=== PATIENT | male | born 1960 | race Caucasian/White ===

== ENCOUNTER 2019-09-27 10:54 | Day surgery (SDC) | payer MEDICAID ==
[~2019-09-27] VITALS: Ht 180.3 cm; Wt 109.6 kg
[2019-09-27] VITALS (11 sets, daily range): BP systolic 92–120; BP diastolic 56–76
[2019-09-27] MEDS ORDERED: ATOR10TA87 PO (11:46)
[2019-09-27] MEDS ORDERED: GLIP5TAB13 PO (11:46)
[2019-09-27] MEDS ORDERED: LEVO125T PO (11:46)
[2019-09-27] MEDS ORDERED: METF500T PO (11:46)
[2019-09-27] MEDS ORDERED: ASPI81TA52 PO (11:46)
[2019-09-27] MEDS ORDERED: SERT-153 PO (11:46)
[2019-09-27] MEDS ORDERED: LISI-600 PO (11:46)
[2019-09-27] MEDS ORDERED: midazolam 2 mg/2 ml injection ONE ×2 (11:56→12:37)
[2019-09-27] MEDS ORDERED: fentaNYL/PF 50MCG/1 ML 2ML syringe ONE (11:56)
[2019-09-27] MEDS ORDERED: iohexol 350MG/ML 100ml bottle IV ONE (11:57)
[2019-09-27] MEDS ORDERED: LIDOcaine 1% (10mg/ml)w/preservative injection 20ml MDV ONE (11:57)
[2019-09-27] MEDS ORDERED: iohexol 350 MG/ML 50ML vial IV ONE (11:57)
[2019-09-27] MEDS ORDERED: diphenhydrAMINE 50 mg/ml inj ONE (12:20)
[2019-09-27] MEDS ORDERED: proCHLORperazine 10 MG/2 ml inj ONE (12:37)
[2019-09-27] MEDS ORDERED: proCHLORperazine 10 MG/2 ml inj IV PRN (13:40)
[2019-09-27] MEDS ORDERED: nitroGLYCERIN 0.4mg SUBLingual tab SL PRN (13:40)
[2019-09-27] MEDS ORDERED: HYDROcodone/acetaminophen 5mg/325mg tablet PO PRN (13:40)
[2019-09-27] MEDS ORDERED: OXAZEpam 15mg capsule PO PRN (13:40)
[2019-09-27] MEDS ORDERED: HYDROcodone/acetaminophen 10/325mg tab PO PRN (13:40)
[2019-09-27] MEDS ORDERED: ondansetron/PF 4mg/2ml inj IV PRN (13:40)
[2019-09-27] MEDS ORDERED: normal saline 1000ml 1,000 ML IV SCH (13:40)
== END 2019-09-27 18:55 | disposition home or self-care (01) ==
LOC: SSTAY O 10:54
PROVIDERS: ATTEND Internal Medicine Cardiovascular Disease
DX: R94.39 Abnormal result of other cardiovascular function study (principal); I25.10 Atherosclerotic heart disease of native coronary artery without angina pectoris; E11.9 Type 2 diabetes mellitus without complications; I10 Essential (primary) hypertension; E03.9 Hypothyroidism, unspecified; E78.5 Hyperlipidemia, unspecified; F17.210 Nicotine dependence, cigarettes, uncomplicated; Z79.899 Other long term (current) drug therapy; Z96.651 Presence of right artificial knee joint; Z79.82 Long term (current) use of aspirin
CPT/HCPCS: 82948; 93458; 99152; C1769; J0780; J1200; J1644; J2001; J2250; J3010; Q9967; 99153; A4620; A6258; C1760

== ENCOUNTER 2020-02-02 06:38 | Day surgery (SDC) | payer MEDICAID ==
[2020-01-25 14:56] LABS: BASOPHILS # (AUTO) 0.1 X10'3 (0-0.2); BASOPHILS % (AUTO) 0.7 % (0-1); EOSINOPHILS # (AUTO) 0.1 X10'3 (0-0.9); EOSINOPHILS % (AUTO) 1.1 % (0-6); LYMPHOCYTES # (AUTO) 2.8 X10'3 (1.1-4.8); LYMPHOCYTES % (AUTO) 29.3 % (21-51); MEAN CORPUSCULAR HEMOGLOBIN 30.6 PG (27.0-31.0); MEAN CORPUSCULAR HGB CONC 34.3 g/dL (33.0-36.5); MEAN CORPUSCULAR VOLUME 89.3 FL (78-98); MEAN PLATELET VOLUME 9.1 FL (7.4-10.4); MONOCYTES # (AUTO) 0.6 X10'3 (0-0.9); MONOCYTES % (AUTO) 6.8 % (2-12); NEUTROPHILS # (AUTO) 5.9 X10'3 (1.8-7.7); NEUTROPHILS % (AUTO) 62.1 % (42-75); PRE OP HEMATOCRIT 46.5 % (42.0-52.0); PRE OP HEMOGLOBIN 15.9 g/dL (14.0-17.9); PRE OP PLATELET COUNT 176 X10'3 (140-440); RED BLOOD COUNT 5.21 X10'6 (4.70-6.10); RED CELL DISTRIBUTION WIDTH 14.3 % (11.5-14.5)
[2020-01-25 15:31] LABS: ALBUMIN 3.6 G/DL (3.4-5.0); ALBUMIN/GLOBULIN RATIO 1.1 (1.1-1.5); ALKALINE PHOSPHATASE 89 IU/L (46-116); BLOOD UREA NITROGEN 18 MG/DL (7-18); BUN/CREATININE RATIO 14.2 (5.4-32.0); CALCIUM 8.4 MG/DL (8.5-10.1); CHLORIDE 107 MMOL/L (99-107); CREATININE 1.27 MG/DL (0.60-1.10); PRE OP ALT 28 U/L (30-65); PRE OP ANION GAP 10 (8-16); PRE OP AST 15 U/L (10-37); PRE OP BILIRUB, TOTAL 0.5 MG/DL (0.0-1.0); PRE OP POTASSIUM 4.1 MMOL/L (3.4-5.1); PRE OP SODIUM 142 MMOL/L (135-145); TOTAL CARBON DIOXIDE 25.4 MMOL/L (24-32); TOTAL PROTEIN 6.9 G/DL (6.4-8.2); eGFR 58 ML/MIN
[2020-01-25 15:41] LABS: PRE OP GLUCOSE 222 MG/DL (70-104)
[2020-02-02] VITALS (16 sets, daily range): BP systolic 108–147; BP diastolic 69–92
[~2020-02-02] VITALS: Ht 180.3 cm; Wt 116.6 kg
[~2020-02-02 06:38] MED LIST: ATOR10TA87 PO; GLIP5TAB13 PO; LEVO125T PO; LISI-600 PO; METF500T PO; SERT-153 PO; ceFAZolin 2gm in dextrose, iso 50 ML IV ONE; famotidine 20mg tablet PO ONE; ringers solution, lacted 1,000 ML IV SCH; vancomycin 1,500 MG in NS 300ml IV soln IV ONE
[2020-02-02] MEDS ORDERED: insulin regular, human 10 units/0.1 ml syringe SQ ONE (07:55)
[2020-02-02] MEDS ORDERED: insulin regular, human 10 units/0.1 ml syringe IV ONE (07:55)
[2020-02-02] MEDS ORDERED: ringers solution, lacted 1,000 ML IV SCH (08:23)
[2020-02-02] MEDS ORDERED: proCHLORperazine 10 MG/2 ml inj IV PRN (08:25)
[2020-02-02] MEDS ORDERED: ondansetron/PF 4mg/2ml inj IV PRN (08:25)
[2020-02-02] MEDS ORDERED: HYDROmorphone inj. 0.5 MG/0.5 ML DISP.SYRIN IV PRN ×2 (08:25)
[2020-02-02] MEDS ORDERED: morphine 4 MG/ML inj SYRINge IV PRN (08:25)
[2020-02-02] MEDS ORDERED: morphine 2 MG/ML inj. syringe IV PRN (08:25)
[2020-02-02] MEDS ORDERED: meperidine/PF 25mg/ml syringe IV PRN (08:25)
[2020-02-02] MEDS ORDERED: acetaminophen 1,000mg/100ml IV 100 ML IV PRN (08:25)
[2020-02-02] MEDS ORDERED: BUPIVAcaine/PF 2.5 mg/ml (0.25%) 30ml vial ONE (09:02)
[2020-02-02] MEDS ORDERED: methylPREDNISolone sod succ 125mg/2ml vial ONE (09:23)
[2020-02-02] MEDS ORDERED: sevoflurane 250ml liquid IH ONE (09:30)
[2020-02-02] MEDS ORDERED: dexamethasone sod phosphate 10mg/ml inj ONE (09:30)
[2020-02-02] MEDS ORDERED: fentaNYL/PF 50MCG/1 ML 2ML syringe ONE (09:33)
[2020-02-02] MEDS ORDERED: propofol inj 20 ML IV ONE (09:57)
[2020-02-02] MEDS ORDERED: ROPIVAcaine 0.5% (5mg/ml) 30ml vial ONE ×2 (09:57→09:58)
[2020-02-02] MEDS ORDERED: midazolam 2 mg/2 ml injection ONE (09:57)
[2020-02-02] MEDS ORDERED: LIDOcaine 1%/PF 5ML 10 MG/ML VIAL ONE (09:57)
[2020-02-02] MEDS ORDERED: LIDOcaine 2% (20mg/ml) 5ml vial ONE (09:58)
[2020-02-02] MEDS ORDERED: ondansetron/PF 4mg/2ml inj ONE (09:58)
--- NOTE | 2020-02-02 11:16 | NUR ---
Received from OR via [facility] , accompanied by Anesthesiologist SORIN and report given by Anesthesiolgist. PATIENT WITH 20G PIV IN RIGHT UE RUNNING LR AT 100. DENIES PAIN. LEFT UE WITH BRACE ON AND WITH BIAS DRESSING ON ELBOW AND WRIST AREA. VSS. DENIES PAIN. Addendum: 02/02/20 at 1131 by Ryan Rivera RN, RN Amended: Links added.
--- NOTE | 2020-02-02 13:10 | NUR ---
DISCUSSED O2 SATURATIONS, LACK OF HOME SUPPORT EXCEPT FOR A FRIEND FOR ONE NIGHT, SLEEP APENA WITHOUT CPAP, AND CURRENT LOW SATS WITH MD ROWELL AND JESS. LUNG SOUNDS ARE CLEAR BILATERALLY. VERIFIED BY MD ROWELL. CONTINUING TO ASSESS AND MONITOR. Addendum: 02/02/20 at 1314 by Ryan Rivera RN, RN Amended: Links added.
--- NOTE | 2020-02-02 14:46 | NUR ---
I HAVE REVIEWED D/C INSTRUCTIONS WITH PATIENT AND FAMILY AND THEY HAVE VERBALIZED UNDERSTANDING. PATIENT D/C HOME WITH ALL BELONGINGS AND FAMILY GAVE TRANSPORT HOME. MD MERCADO AFFIRMS THAT PATIENT CAN GO HOME. 95% SATURATIONS ON RA. OUT VIA WHEELCHAIR TO TRANSPORT [employer]. VSS. LEFT UE CDI. NO DRAINAGE EVIDENT, + CAP REFIL AND MOVEMENT OF ALL FINGERS. Addendum: 02/02/20 at 1458 by Ryan Rivera RN, RN Amended: Links added.
== END 2020-02-02 14:46 | disposition home or self-care (01) ==
LOC: PAS 06:38
PROVIDERS: ATTEND Orthopaedic Surgery
DX: G56.22 Lesion of ulnar nerve, left upper limb (principal); G56.02 Carpal tunnel syndrome, left upper limb; F17.210 Nicotine dependence, cigarettes, uncomplicated; I10 Essential (primary) hypertension; F32.9 Major depressive disorder, single episode, unspecified; F41.9 Anxiety disorder, unspecified; M19.90 Unspecified osteoarthritis, unspecified site; E11.9 Type 2 diabetes mellitus without complications; G47.33 Obstructive sleep apnea (adult) (pediatric); E66.9 Obesity, unspecified; Z68.34 Body mass index [BMI] 34.0-34.9, adult; Z86.14 Personal history of Methicillin resistant Staphylococcus aureus infection; Z79.84 Long term (current) use of oral hypoglycemic drugs; Z11.59 Encounter for screening for other viral diseases; Z79.899 Other long term (current) drug therapy; G89.18 Other acute postprocedural pain
CPT/HCPCS: 36415; 64415; 64718; 64719; 64721; 80053; 82948; 85025; A6222; A6454; J1100; J1815; J2001; J2250; J2405; J2704; J2930; J3010; J3370; J3490; J7040; L3999; U0003; A4215; A4618; A6449; A7000; J2795; J7120

== ENCOUNTER 2020-04-20 05:14 | Inpatient (IN) | payer MEDICAID ==
[2020-04-16 11:39] LABS: BASOPHILS # (AUTO) 0.1 X10'3 (0-0.2); BASOPHILS % (AUTO) 0.5 % (0-1); EOSINOPHILS # (AUTO) 0.1 X10'3 (0-0.9); EOSINOPHILS % (AUTO) 1.5 % (0-6); LYMPHOCYTES # (AUTO) 2.4 X10'3 (1.1-4.8); LYMPHOCYTES % (AUTO) 24.4 % (21-51); MEAN CORPUSCULAR HEMOGLOBIN 30.8 PG (27.0-31.0); MEAN CORPUSCULAR HGB CONC 33.9 g/dL (33.0-36.5); MEAN CORPUSCULAR VOLUME 90.9 FL (78-98); MEAN PLATELET VOLUME 8.7 FL (7.4-10.4); MONOCYTES # (AUTO) 0.6 X10'3 (0-0.9); MONOCYTES % (AUTO) 6.3 % (2-12); NEUTROPHILS # (AUTO) 6.6 X10'3 (1.8-7.7); NEUTROPHILS % (AUTO) 67.3 % (42-75); PRE OP HEMATOCRIT 44.5 % (42.0-52.0); PRE OP HEMOGLOBIN 15.1 g/dL (14.0-17.9); PRE OP PLATELET COUNT 163 X10'3 (140-440); RED BLOOD COUNT 4.89 X10'6 (4.70-6.10); RED CELL DISTRIBUTION WIDTH 14.3 % (11.5-14.5)
[2020-04-16 11:40] LABS: CLARITY,URINE SLIGHTLY CLOUDY (Clear); COLOR,URINE YELLOW (Yellow); GLUCOSE, URINE 500 mg/dl (Neg); KETONES,URINE NEGATIVE (Neg); LEUKOCYTE ESTERASE ,URINE NEGATIVE (Neg); NITRITES, URINE NEGATIVE (Neg); OCCULT BLOOD,URINE NEGATIVE (Neg); PH,URINE 5.5 (4.8-8.0); PROTEIN,URINE NEGATIVE (Neg); UROBILINOGEN,URINE 0.2 E.U/dL (0.2-1.0)
[2020-04-16 11:49] LABS: PRE OP PROTIME 10.1 SECONDS (9.0-12.0)
[2020-04-16 11:51] LABS: HEMOGLOBIN A1C 7.4 % (4.5-6.2)
[2020-04-16 11:59] LABS: ALBUMIN 3.5 G/DL (3.4-5.0); ALBUMIN/GLOBULIN RATIO 1.1 (1.1-1.5); ALKALINE PHOSPHATASE 86 IU/L (46-116); BLOOD UREA NITROGEN 14 MG/DL (7-18); BUN/CREATININE RATIO 13.3 (5.4-32.0); CALCIUM 8.5 MG/DL (8.5-10.1); CHLORIDE 103 MMOL/L (99-107); CREATININE 1.05 MG/DL (0.60-1.10); PRE OP ALT 28 U/L (30-65); PRE OP ANION GAP 5 (8-16); PRE OP AST 12 U/L (10-37); PRE OP BILIRUB, TOTAL 0.6 MG/DL (0.0-1.0); PRE OP POTASSIUM 4.1 MMOL/L (3.4-5.1); PRE OP SODIUM 137 MMOL/L (135-145); TOTAL CARBON DIOXIDE 28.7 MMOL/L (24-32); TOTAL PROTEIN 6.8 G/DL (6.4-8.2); eGFR 73 ML/MIN
[2020-04-16 12:00] LABS: PRE OP GLUCOSE 215 MG/DL (70-104)
[2020-04-16 12:00] LABS: UA COLLECTION TYPE CLN CATCH MIDSTREAM
[2020-04-16 12:06] LABS: MUCUS STRANDS MANY /LPF (Neg); SQUAMOUS EPITHELIAL CELL,UR MODERATE /LPF (FEW)
[2020-04-16 12:07] LABS: BACTERIA,URINE FEW /HPF (Neg); RBC,URINE 0-2 /HPF (0-2); WBC,URINE 0-4 /HPF (0-4)
[2020-04-20] VITALS (17 sets, daily range): BP systolic 97–169; BP diastolic 42–97
[~2020-04-20] VITALS: Ht 180.3 cm; Wt 122.3 kg
[~2020-04-20 05:14] MED LIST changes: +ASPI-612 PO; -ceFAZolin 2gm in dextrose, iso 50 ML IV ONE; -famotidine 20mg tablet PO ONE; -ringers solution, lacted 1,000 ML IV SCH; -vancomycin 1,500 MG in NS 300ml IV soln IV ONE
[2020-04-20] MEDS ORDERED: vancomycin 1,500 MG in NS 300ml IV soln IV ONE (05:30)
[2020-04-20] MEDS ORDERED: cefazolin/dext.iso 2gm/50ml 50 ML IV ONE (05:30)
[2020-04-20] MEDS ORDERED: famotidine 20mg tablet PO ONE (05:30)
[2020-04-20] MEDS: ringers solution, lacted 1,000 ML IV SCH ×2 (06:09→11:37)
[2020-04-20] MEDS ORDERED: bacitracin 15gm ointment TP ONE (06:56)
[2020-04-20] MEDS ORDERED: sevoflurane 250ml liquid IH ONE (07:05)
[2020-04-20] MEDS ORDERED: fentaNYL/PF 50MCG/1 ML 2ML syringe ONE (07:06)
[2020-04-20] MEDS ORDERED: midazolam 2 mg/2 ml injection ONE (07:08)
[2020-04-20] MEDS ORDERED: ringers solution, lacted 1,000 ML IV SCH (07:41)
[2020-04-20] MEDS ORDERED: morphine 4 MG/ML inj SYRINge IV PRN (07:45)
[2020-04-20] MEDS ORDERED: meperidine/PF 25mg/ml syringe IV PRN (07:45)
[2020-04-20] MEDS ORDERED: hydrALAZINE 20mg/ml inj. IV PRN (07:45)
[2020-04-20] MEDS ORDERED: morphine 2 MG/ML inj. syringe IV PRN (07:45)
[2020-04-20] MEDS ORDERED: proCHLORperazine 10 MG/2 ml inj IV PRN (07:45)
[2020-04-20] MEDS ORDERED: acetaminophen 1,000mg/100ml IV 100 ML IV PRN (07:45)
[2020-04-20] MEDS ORDERED: ondansetron/PF 4mg/2ml inj IV PRN ×2 (07:45→09:55)
[2020-04-20] MEDS ORDERED: labetalol 20mg/4ml (5mg/ml) syringe IV PRN (07:45)
[2020-04-20] MEDS ORDERED: HYDROmorphone inj. 0.5 MG/0.5 ML DISP.SYRIN IV PRN ×2 (07:45)
[2020-04-20] MEDS ORDERED: ROPIVAcaine 0.5% (5mg/ml) 30ml vial ONE ×2 (07:53)
[2020-04-20] MEDS ORDERED: propofol inj 20 ML IV ONE (07:53)
[2020-04-20] MEDS ORDERED: LIDOcaine 2% (20mg/ml) 5ml vial ONE (07:53)
[2020-04-20] MEDS ORDERED: insulin regular, human U-100 3ml vial - multi-dose ONE (07:57)
[2020-04-20] MEDS ORDERED: ondansetron/PF 4mg/2ml inj ONE (08:13)
[2020-04-20] MEDS ORDERED: dexamethasone sod phosphate 4mg/ml inj. ONE (08:13)
[2020-04-20] MEDS ORDERED: ePHEDrine 50MG/ML INJ. ONE (09:10)
[2020-04-20] MEDS ORDERED: 0.9 % SODIUM CHLORIDE 10 ML VIAL ONE (09:10)
[2020-04-20] MEDS ORDERED: rocuronium 10mg/ml inj IV ONE (09:12)
[2020-04-20] MEDS ORDERED: neostigmine methylsulfate 1 MG/ML 10ml vial ONE (09:51)
[2020-04-20] MEDS ORDERED: glycopyrrolate 0.2mg/ml inj ONE (09:51)
[2020-04-20] MEDS ORDERED: bisacodyl 10mg suppository rectal RC PRN (09:55)
[2020-04-20] MEDS ORDERED: magnesium hydroxide 30ml (MOM) UD suspension PO PRN (09:55)
[2020-04-20] MEDS ORDERED: diphenhydrAMINE 25mg capsule PO PRN ×2 (09:55)
[2020-04-20] MEDS ORDERED: acetaminophen 325mg tablet PO PRN (09:55)
--- NOTE | 2020-04-20 09:56 | NUR ---
Received from OR via [facility] , accompanied by Anesthesiologist SORIN and report given by Anesthesiolgist. PATIENT WITH 20G PIV IN LEFT UE RUNNING LR AT 100. DENIES PAIN. RIGHT FOOT IN SPLINT THAT IS CDI. TOES PWD, + CAP REFILL. VSS AT THIS TIME. 10L MASK ON WITH 1 Addendum: 04/20/20 at 1005 by Ryan Rivera RN, RN Amended: Links added.
[2020-04-20] MEDS ORDERED: MESSAGE TO PHARMACY PO ONE ×2 (10:10→13:40)
[2020-04-20] MEDS ORDERED: glucagon, human recombinant 1mg kit SUBCUT PRN ×2 (10:10→13:40)
[2020-04-20] MEDS ORDERED: dextrose 50%-water 50ml dispensing syringe IV PRN ×4 (10:10→13:40)
[2020-04-20] MEDS ORDERED: dextrose ORAL solution 15 GM/59 ML bottle PO PRN ×4 (10:10→13:40)
--- NOTE | 2020-04-20 10:46 | NUR ---
ALL CRITERIA FOR TRANSFER TO THE FLOOR HAS BEEN ACHIEVED. REPORT GIVEN AND ALL QUESTIONS ANSWERED, VSS. BED LOW 2 RAILS UP, CALL LIGHT PRESENT AND PATIENT HOOKED UP TO ALL LINES AND VSS. PATIENTS RN PRESENT TO ACCEPT CARE. JOEL BAÑUELOS AND ELVA PRESENT TO ACCEPT PATIENT AND GET HIM SITUATED IN THE BED. VSS. RN TO ASSIST IN PAIN CONTROL. ON Q DELIVERED TO ORTHOPEDICS BY PHARMACY. Addendum: 04/20/20 at 1055 by Ryan Mcdonald - JOEL RN Amended: Links added.
[2020-04-20] MEDS: HYDROcodone/acetaminophen 10/325mg tab PO PRN ×4 (10:55→23:11)
[2020-04-20] MEDS: ROPIVAcaine 0.2% (10 MG/5 ML) BOLUS INJECTION POPLITEAL PRN (10:58)
[2020-04-20] MEDS: ROPIVAcaine 0.2%/PF PUMP/bolus 550 ML POPLITEAL SCH (11:30)
[2020-04-20] MEDS ORDERED: potassium Cl 20 mEq SR tablet PO PRN ×2 (13:40)
[2020-04-20] MEDS ORDERED: potassium CL 10mEq/100ml bag 100 ML IV PRN (13:40)
[2020-04-20] MEDS ORDERED: magnesium Cl slow-release 64mg tablet PO PRN (13:40)
[2020-04-20] MEDS ORDERED: magnesium 4gm in 100ml NS 100 ML IV PRN (13:40)
[2020-04-20] MEDS ORDERED: insulin Lispro (HumaLOG) vial - multi-dose SQ SCH (13:40)
--- NOTE | 2020-04-20 15:47 | NUR ---
DM education: patient has A1c of 7.4%, will need written DM education handout with verbal review. Attempted bedside education, pt not available in room at that time. Will attempt education again. Addendum: 04/20/20 at [address] Amended: Links added.
[2020-04-20] MEDS: ceFAZolin 1GM/D5W- ADD-VANTAGE 50 ML IV SCH ×2 (15:54→23:12)
[2020-04-20] MEDS ORDERED: ATOR20TA PO (17:20)
[2020-04-20] MEDS ORDERED: SERT100T10 PO (17:20)
--- NOTE | 2020-04-20 18:44 | NUR ---
Problems reprioritized. Patient report given, questions answered & plan of care reviewed with Alycia MALDONADO.
--- NOTE | 2020-04-20 18:49 | NUR ---
Patient in room ORTHO 4009. I have received report from SARMAD MALDONADO and had the opportunity to ask questions and assume patient care.
[2020-04-20] MEDS: insulin Lispro (HumaLOG) vial - multi-dose SQ SCH (19:01)
[2020-04-20] MEDS: K and/or MAG REPLACEMENT MC SCH (20:00)
[2020-04-20] MEDS ORDERED: insulin glargine (Lantus) pen - multi-dose SQ SCH (21:00)
[2020-04-20] MEDS: insulin glargine (Lantus) pen - multi-dose SQ SCH (21:30)
[2020-04-20] MEDS: sennosides 8.6mg tablet PO SCH (22:37)
[2020-04-21] MEDS: oxyCODONE/APAP 10/325mg tablet PO PRN ×6 (00:22→21:33)
--- NOTE | 2020-04-21 01:18 | NUR ---
MEDICATED PATIENT WITH NORCO AT 2310, AT 2350, PATIENT STATES PAIN NOT EVEN BEGINNING TO LET UP AND THAT NORCO DOESN'T WORK ON HIM. RC'D ORDERS FROM DR. GUO TO CHANGE PATIENT TO PERCOCET 10 (2) Q4HRS AND MAY SET UP DILAUDID HAND BRAILLE TRANSCRIBER IF NEEDED. 2 PERCOCET ADMINISTERED. AT THIS TIME, PATIENT STATES PAIN DOWN TO A 5, HAS BEEN RESTING AND WILL CONTINUE TO MONITOR.
[2020-04-21 02:00] VITALS: BP 104/65
[2020-04-21 05:42] LABS: ALANINE AMINOTRANSFERASE 19 U/L (12-78); ALBUMIN 2.9 G/DL (3.4-5.0); ALBUMIN/GLOBULIN RATIO 0.9 (1.1-1.5); ALKALINE PHOSPHATASE 72 IU/L (46-116); ANION GAP 6 (8-16); ASPARTATE AMINO TRANSFERASE 11 U/L (10-37); BILIRUBIN,TOTAL 0.5 MG/DL (0.1-1.0); BLOOD UREA NITROGEN 14 MG/DL (7-18); BUN/CREATININE RATIO 12.2 (5.4-32.0); CALCIUM 8.5 MG/DL (8.5-10.1); CHLORIDE 102 MMOL/L (99-107); CREATININE 1.15 MG/DL (0.60-1.10); GLUCOSE 181 MG/DL (70-104); MAGNESIUM 1.7 MG/DL (1.5-2.4); PHOSPHORUS 4.2 MG/DL (2.3-4.5); POTASSIUM 4.1 MMOL/L (3.5-5.1); SODIUM 138 MMOL/L (135-145); TOTAL CARBON DIOXIDE 29.8 MMOL/L (24-32); eGFR 65 ML/MIN
[2020-04-21 05:44] LABS: BASOPHILS # (AUTO) 0.1 X10'3 (0-0.2); BASOPHILS % (AUTO) 0.4 % (0-1); EOSINOPHILS % (AUTO) 0.4 % (0-6); HEMATOCRIT 37.9 % (42.0-52.0); HEMOGLOBIN 12.8 g/dl (14.0-17.9); MEAN CORPUSCULAR HEMOGLOBIN 30.7 PG (27.0-31.0); MEAN CORPUSCULAR HGB CONC 33.7 g/dL (33.0-36.5); MEAN CORPUSCULAR VOLUME 91.2 FL (78-98); MEAN PLATELET VOLUME 8.9 FL (7.4-10.4); MONOCYTES # (AUTO) 0.9 X10'3 (0-0.9); MONOCYTES % (AUTO) 6.9 % (2-12); NEUTROPHILS # (AUTO) 10.6 X10'3 (1.8-7.7); NEUTROPHILS % (AUTO) 84.3 % (42-75); PLATELET COUNT 154 X10'3 (140-440); RED BLOOD COUNT 4.16 X10'6 (4.70-6.10); RED CELL DISTRIBUTION WIDTH 13.8 % (11.5-14.5); WHITE BLOOD COUNT 12.5 X10'3 (4.5-11.0)
[2020-04-21 06:00] VITALS: BP 125/47
--- NOTE | 2020-04-21 06:28 | NUR ---
Received report from JOEL Tong.
--- NOTE | 2020-04-21 06:32 | NUR ---
Patient in room ORTHO 4013. I have received report from Alycia MALDONADO and had the opportunity to ask questions and assume patient care.
--- NOTE | 2020-04-21 06:40 | NUR ---
REPORT TO EARLY SHIFT RN. PATIENT MEDICATED WITH PERCOCET FOR PAIN 03/05 AND TO WORK WITH PT.
--- NOTE | 2020-04-21 06:49 | NUR ---
Problems reprioritized. Patient report given, questions answered & plan of care reviewed with SARMAD MALDONADO.
[2020-04-21] MEDS: atorvastatin 10mg tablet PO SCH (07:21)
[2020-04-21] MEDS: lisinopril 20mg tablet PO SCH (07:21)
[2020-04-21] MEDS: levoTHYROXINE 125mcg tablet PO SCH (07:21)
[2020-04-21] MEDS: multivitamins, therapeutics tablet PO SCH (07:22)
[2020-04-21] MEDS: aspirin 81mg tablet.DR PO SCH (07:22)
[2020-04-21] MEDS: sertraline 50mg tablet PO SCH (07:22)
[2020-04-21] MEDS: K and/or MAG REPLACEMENT MC SCH ×2 (08:00→20:00)
[2020-04-21] MEDS ORDERED: metFORMIN 500mg tablet PO SCH (08:00)
[2020-04-21] MEDS ORDERED: glipizide 5mg tablet PO SCH (08:00)
[2020-04-21] MEDS: insulin Lispro (HumaLOG) vial - multi-dose SQ SCH ×3 (08:32→19:47)
[2020-04-21 10:00] VITALS: BP 112/62
[2020-04-21] MEDS ORDERED: LORazepam 2 mg/ml vial IV PRN (10:05)
[2020-04-21] MEDS ORDERED: LORazepam 1 MG tablet PO PRN (10:05)
[2020-04-21] MEDS ORDERED: thiamine inj. 100 MG in normal saline 100ml IV soln 100 ML IV ONE (10:05)
--- NOTE | 2020-04-21 11:16 | NUR ---
DM education: patient has A1c of 7.4%, met at bedside and given written DM education handout with verbal review. Gave RD contact information for any addition questions. Reviewed types of carbs, carb counting, serving sizes, and benefits of physical activity once ankle healed and cleared to exercise by surgeon. Addendum: 04/21/20 at [address] Amended: Links added.
--- NOTE | 2020-04-21 11:19 | NUR ---
Patient unable to void, bladder scan showed >701 mL. Addendum: 04/21/20 at 1121 by Telma DURAN Incorrect patient.
[2020-04-21 14:00] VITALS: BP 114/54
--- NOTE | 2020-04-21 16:19 | NUR ---
Lab said patient insurance would not cover another A1C, and the test to repeat would be 500 dollars, so I spoke to patient and he said its okay that we don't draw another value.
--- NOTE | 2020-04-21 18:45 | NUR ---
Problems reprioritized. Patient report given, questions answered & plan of care reviewed with Alycia MALDONADO.
--- NOTE | 2020-04-21 18:46 | NUR ---
Student documentation: I have reviewed and agree with all interventions, assessments performed and documented by Telma MALDONADO.
[2020-04-21] MEDS: sennosides 8.6mg tablet PO SCH (21:31)
[2020-04-21] MEDS: insulin glargine (Lantus) pen - multi-dose SQ SCH (21:39)
[2020-04-22] MEDS: oxyCODONE/APAP 10/325mg tablet PO PRN ×5 (02:49→21:11)
[2020-04-22] MEDS: ROPIVAcaine 0.2% (10 MG/5 ML) BOLUS INJECTION POPLITEAL PRN (02:50)
[2020-04-22 06:00] VITALS: BP 144/82
[2020-04-22 06:15] LABS: BASOPHILS % (AUTO) 0.4 % (0-1); EOSINOPHILS # (AUTO) 0.1 X10'3 (0-0.9); EOSINOPHILS % (AUTO) 1.6 % (0-6); HEMATOCRIT 38.6 % (42.0-52.0); LYMPHOCYTES # (AUTO) 1.8 X10'3 (1.1-4.8); LYMPHOCYTES % (AUTO) 19.5 % (21-51); MEAN CORPUSCULAR HEMOGLOBIN 30.9 PG (27.0-31.0); MEAN CORPUSCULAR HGB CONC 33.6 g/dL (33.0-36.5); MEAN CORPUSCULAR VOLUME 91.8 FL (78-98); MEAN PLATELET VOLUME 8.9 FL (7.4-10.4); MONOCYTES % (AUTO) 11.3 % (2-12); NEUTROPHILS # (AUTO) 6.1 X10'3 (1.8-7.7); NEUTROPHILS % (AUTO) 67.2 % (42-75); PLATELET COUNT 140 X10'3 (140-440); RED BLOOD COUNT 4.21 X10'6 (4.70-6.10); RED CELL DISTRIBUTION WIDTH 14.1 % (11.5-14.5)
[2020-04-22 06:33] LABS: ALANINE AMINOTRANSFERASE 20 U/L (12-78); ALBUMIN 2.8 G/DL (3.4-5.0); ALBUMIN/GLOBULIN RATIO 0.9 (1.1-1.5); ALKALINE PHOSPHATASE 71 IU/L (46-116); ANION GAP 7 (8-16); ASPARTATE AMINO TRANSFERASE 18 U/L (10-37); BILIRUBIN,TOTAL 0.4 MG/DL (0.1-1.0); BLOOD UREA NITROGEN 13 MG/DL (7-18); BUN/CREATININE RATIO 11.7 (5.4-32.0); CALCIUM 8.3 MG/DL (8.5-10.1); CHLORIDE 104 MMOL/L (99-107); CREATININE 1.11 MG/DL (0.60-1.10); GLUCOSE 147 MG/DL (70-104); PHOSPHORUS 3.2 MG/DL (2.3-4.5); SODIUM 140 MMOL/L (135-145); TOTAL CARBON DIOXIDE 29.2 MMOL/L (24-32); TOTAL PROTEIN 5.9 G/DL (6.4-8.2); eGFR 68 ML/MIN
--- NOTE | 2020-04-22 06:39 | NUR ---
Problems reprioritized. Patient report given, questions answered & plan of care reviewed with CATERINA MALDONADO.
[2020-04-22 06:45] LABS: POTASSIUM 3.8 MMOL/L (3.5-5.1)
--- NOTE | 2020-04-22 06:58 | NUR ---
Patient in room ORTHO 4013A. I have received report from JOEL Tong and had the opportunity to ask questions and assume patient care.
[2020-04-22] MEDS: K and/or MAG REPLACEMENT MC SCH ×2 (07:11→20:00)
[2020-04-22] MEDS: aspirin 81mg tablet.DR PO SCH (07:28)
[2020-04-22] MEDS: levoTHYROXINE 125mcg tablet PO SCH (07:28)
[2020-04-22] MEDS: multivitamins, therapeutics tablet PO SCH ×2 (07:29→08:00)
[2020-04-22] MEDS: thiamine 100mg tablet PO SCH (07:29)
[2020-04-22] MEDS: folic acid 1mg tablet PO SCH (07:29)
[2020-04-22] MEDS: atorvastatin 10mg tablet PO SCH (07:29)
[2020-04-22] MEDS: lisinopril 20mg tablet PO SCH (07:30)
[2020-04-22] MEDS: sertraline 50mg tablet PO SCH (07:31)
[2020-04-22] MEDS: ROPIVAcaine 0.2%/PF PUMP/bolus 550 ML POPLITEAL SCH (09:48)
[2020-04-22 10:00] VITALS: BP 136/76
[2020-04-22] MEDS: insulin Lispro (HumaLOG) vial - multi-dose SQ SCH ×3 (10:19→18:52)
[2020-04-22 18:00] VITALS: BP 151/81
--- NOTE | 2020-04-22 18:23 | NUR ---
Problems reprioritized. Patient report given, questions answered & plan of care reviewed with JOEL Castro.
[2020-04-22] MEDS: sennosides 8.6mg tablet PO SCH (20:10)
[2020-04-22] MEDS: insulin glargine (Lantus) pen - multi-dose SQ SCH (21:05)
[2020-04-22 22:00] VITALS: BP 151/91
[2020-04-23] MEDS: oxyCODONE/APAP 10/325mg tablet PO PRN ×4 (03:19→20:16)
[2020-04-23 06:00] VITALS: BP 149/56
--- NOTE | 2020-04-23 06:14 | NUR ---
Problems reprioritized. Patient report given, questions answered & plan of care reviewed with JOEL SCHMITZ.
[2020-04-23 06:50] LABS: BASOPHILS % (AUTO) 0.4 % (0-1); EOSINOPHILS # (AUTO) 0.1 X10'3 (0-0.9); EOSINOPHILS % (AUTO) 1.4 % (0-6); HEMATOCRIT 38.5 % (42.0-52.0); LYMPHOCYTES # (AUTO) 1.7 X10'3 (1.1-4.8); LYMPHOCYTES % (AUTO) 22.2 % (21-51); MEAN CORPUSCULAR HEMOGLOBIN 30.6 PG (27.0-31.0); MEAN CORPUSCULAR HGB CONC 33.6 g/dL (33.0-36.5); MEAN CORPUSCULAR VOLUME 91.1 FL (78-98); MEAN PLATELET VOLUME 8.8 FL (7.4-10.4); MONOCYTES # (AUTO) 0.8 X10'3 (0-0.9); MONOCYTES % (AUTO) 10.2 % (2-12); NEUTROPHILS % (AUTO) 65.8 % (42-75); PLATELET COUNT 155 X10'3 (140-440); RED BLOOD COUNT 4.23 X10'6 (4.70-6.10); RED CELL DISTRIBUTION WIDTH 14.1 % (11.5-14.5); WHITE BLOOD COUNT 7.7 X10'3 (4.5-11.0)
[2020-04-23 07:21] LABS: ALANINE AMINOTRANSFERASE 18 U/L (12-78); ALBUMIN 2.7 G/DL (3.4-5.0); ALBUMIN/GLOBULIN RATIO 0.8 (1.1-1.5); ALKALINE PHOSPHATASE 73 IU/L (46-116); ANION GAP 7 (8-16); ASPARTATE AMINO TRANSFERASE 13 U/L (10-37); BILIRUBIN,TOTAL 0.4 MG/DL (0.1-1.0); BLOOD UREA NITROGEN 11 MG/DL (7-18); BUN/CREATININE RATIO 11.7 (5.4-32.0); CALCIUM 8.5 MG/DL (8.5-10.1); CHLORIDE 104 MMOL/L (99-107); CREATININE 0.94 MG/DL (0.60-1.10); GLUCOSE 130 MG/DL (70-104); MAGNESIUM 2.2 MG/DL (1.5-2.4); PHOSPHORUS 3.2 MG/DL (2.3-4.5); POTASSIUM 3.9 MMOL/L (3.5-5.1); SODIUM 141 MMOL/L (135-145); TOTAL CARBON DIOXIDE 29.8 MMOL/L (24-32); TOTAL PROTEIN 6.3 G/DL (6.4-8.2); eGFR 82 ML/MIN
[2020-04-23] MEDS: multivitamins, therapeutics tablet PO SCH ×2 (07:47→08:26)
[2020-04-23] MEDS: K and/or MAG REPLACEMENT MC SCH ×2 (08:00→20:00)
[2020-04-23] MEDS: sertraline 50mg tablet PO SCH (08:24)
[2020-04-23] MEDS: folic acid 1mg tablet PO SCH (08:24)
[2020-04-23] MEDS: levoTHYROXINE 125mcg tablet PO SCH (08:24)
[2020-04-23] MEDS: aspirin 81mg tablet.DR PO SCH (08:25)
[2020-04-23] MEDS: lisinopril 20mg tablet PO SCH (08:25)
[2020-04-23] MEDS: atorvastatin 10mg tablet PO SCH (08:26)
[2020-04-23] MEDS: thiamine 100mg tablet PO SCH (08:26)
[2020-04-23] MEDS: insulin Lispro (HumaLOG) vial - multi-dose SQ SCH ×2 (09:08→13:26)
[2020-04-23 09:31] VITALS: BP 130/65
[2020-04-23] MEDS: ROPIVAcaine 0.2%/PF PUMP/bolus 550 ML POPLITEAL SCH (16:25)
[2020-04-23 18:00] VITALS: BP 138/85
--- NOTE | 2020-04-23 18:33 | NUR ---
Problems reprioritized. Patient report given, questions answered & plan of care reviewed with JOEL Bee.
[2020-04-23] MEDS: sennosides 8.6mg tablet PO SCH (21:00)
[2020-04-23 22:00] VITALS: BP 140/83
[2020-04-23] MEDS: insulin glargine (Lantus) pen - multi-dose SQ SCH (22:29)
[2020-04-24] MEDS: oxyCODONE/APAP 10/325mg tablet PO PRN ×3 (01:10→14:24)
[2020-04-24 05:28] LABS: BASOPHILS % (AUTO) 0.5 % (0-1); EOSINOPHILS # (AUTO) 0.2 X10'3 (0-0.9); EOSINOPHILS % (AUTO) 2.3 % (0-6); HEMATOCRIT 38.8 % (42.0-52.0); HEMOGLOBIN 13.3 g/dl (14.0-17.9); LYMPHOCYTES % (AUTO) 28.2 % (21-51); MEAN CORPUSCULAR HEMOGLOBIN 31.4 PG (27.0-31.0); MEAN CORPUSCULAR HGB CONC 34.2 g/dL (33.0-36.5); MEAN CORPUSCULAR VOLUME 91.7 FL (78-98); MEAN PLATELET VOLUME 8.6 FL (7.4-10.4); MONOCYTES # (AUTO) 0.7 X10'3 (0-0.9); MONOCYTES % (AUTO) 9.4 % (2-12); NEUTROPHILS # (AUTO) 4.2 X10'3 (1.8-7.7); NEUTROPHILS % (AUTO) 59.6 % (42-75); PLATELET COUNT 174 X10'3 (140-440); RED BLOOD COUNT 4.23 X10'6 (4.70-6.10); RED CELL DISTRIBUTION WIDTH 13.6 % (11.5-14.5); WHITE BLOOD COUNT 7.1 X10'3 (4.5-11.0)
[2020-04-24 06:00] VITALS: BP 141/79
[2020-04-24 07:09] LABS: ALANINE AMINOTRANSFERASE 21 U/L (12-78); ALBUMIN 2.8 G/DL (3.4-5.0); ALBUMIN/GLOBULIN RATIO 0.8 (1.1-1.5); ALKALINE PHOSPHATASE 77 IU/L (46-116); ANION GAP 5 (8-16); ASPARTATE AMINO TRANSFERASE 12 U/L (10-37); BILIRUBIN,TOTAL 0.3 MG/DL (0.1-1.0); BLOOD UREA NITROGEN 15 MG/DL (7-18); BUN/CREATININE RATIO 14.3 (5.4-32.0); CALCIUM 8.3 MG/DL (8.5-10.1); CHLORIDE 103 MMOL/L (99-107); CREATININE 1.05 MG/DL (0.60-1.10); GLUCOSE 156 MG/DL (70-104); MAGNESIUM 2.2 MG/DL (1.5-2.4); PHOSPHORUS 3.9 MG/DL (2.3-4.5); POTASSIUM 3.9 MMOL/L (3.5-5.1); SODIUM 138 MMOL/L (135-145); TOTAL CARBON DIOXIDE 30.3 MMOL/L (24-32); TOTAL PROTEIN 6.5 G/DL (6.4-8.2); eGFR 73 ML/MIN
[2020-04-24] MEDS: K and/or MAG REPLACEMENT MC SCH (08:00)
[2020-04-24] MEDS: multivitamins, therapeutics tablet PO SCH ×2 (08:00→08:44)
[2020-04-24] MEDS: aspirin 81mg tablet.DR PO SCH (08:44)
[2020-04-24] MEDS: lisinopril 20mg tablet PO SCH (08:44)
[2020-04-24] MEDS: insulin Lispro (HumaLOG) vial - multi-dose SQ SCH ×2 (08:44→14:14)
[2020-04-24] MEDS: atorvastatin 10mg tablet PO SCH (08:44)
[2020-04-24] MEDS: sertraline 50mg tablet PO SCH (08:44)
[2020-04-24] MEDS: thiamine 100mg tablet PO SCH (08:45)
[2020-04-24] MEDS: folic acid 1mg tablet PO SCH (08:45)
[2020-04-24] MEDS: levoTHYROXINE 125mcg tablet PO SCH (08:49)
[2020-04-24 10:00] VITALS: BP 129/77
[2020-04-24] MEDS ORDERED: FOLI0.4T2 PO (14:09)
[2020-04-24] MEDS ORDERED: THIA50TA10 PO (14:09)
[2020-04-24] MEDS ORDERED: MULT-25 PO (14:09)
[2020-04-24] MEDS ORDERED: HYDR-4383 PO (14:10)
== END 2020-04-24 15:40 | disposition home or self-care (01) | DRG 313 ==
LOC: PAS IN 05:14 → EDSTATUS 07:30 → ORTHO 4S 10:50
PROVIDERS: ADMIT Podiatrist Foot & Ankle Surgery; ATTEND Podiatrist Foot & Ankle Surgery
PROC: 3E0T3BZ Introduction of Anesthetic Agent into Peripheral Nerves and Plexi, Percutaneous Approach (ICD-10-PCS; 2020-04-20)
PROC: 0SRF0JZ Replacement of Right Ankle Joint with Synthetic Substitute, Open Approach (ICD-10-PCS; principal; 2020-04-20 07:05)
DX: M19.071 Primary osteoarthritis, right ankle and foot (principal); E03.9 Hypothyroidism, unspecified; E11.9 Type 2 diabetes mellitus without complications; Z60.2 Problems related to living alone; E66.01 Morbid (severe) obesity due to excess calories; E78.5 Hyperlipidemia, unspecified; F12.90 Cannabis use, unspecified, uncomplicated; F17.200 Nicotine dependence, unspecified, uncomplicated; F41.8 Other specified anxiety disorders; I10 Essential (primary) hypertension; F10.10 Alcohol abuse, uncomplicated; Z59.0 Homelessness; Z79.82 Long term (current) use of aspirin; Z79.84 Long term (current) use of oral hypoglycemic drugs; Z79.899 Other long term (current) drug therapy; Z68.37 Body mass index [BMI] 37.0-37.9, adult; Z71.6 Tobacco abuse counseling; D62 Acute posthemorrhagic anemia
CPT/HCPCS: 36415; 73600; 76000; 80053; 81001; 82948; 83036; 83735; 84100; 84443; 85025; 85610; 85730; 87081; 87635; 93005; 97116; 97161; 97530; A4618; A6223; A6449; A7000; C1713; C1776; G0378; J0690; J1100; J1170; J1815; J2001; J2250; J2405; J2704; J2710; J2795; J3010; J3370; J3411; J3490; J7040; J7120

== ENCOUNTER 2022-07-16 07:23 | Emergency (ER) | payer MEDICARE, MEDICAID ==
[~2022-07-16] VITALS: Ht 180.3 cm; Wt 102.0 kg
[~2022-07-16 07:23] MED LIST changes: -ATOR10TA87 PO; +ATOR20TA PO; +HYDR-4383 PO; -LISI-600 PO; +LISI20TA28 PO; +MULT-25 PO; -SERT-153 PO; +SERT-434 PO; +THIA50TA10 PO
[2022-07-16 09:38] VITALS: BP 148/74
== END 2022-07-16 09:42 | disposition home or self-care (01) ==
LOC: ER 07:23
DX: F10.20 Alcohol dependence, uncomplicated (principal); E78.00 Pure hypercholesterolemia, unspecified; I10 Essential (primary) hypertension; J44.9 Chronic obstructive pulmonary disease, unspecified; E11.9 Type 2 diabetes mellitus without complications; F17.200 Nicotine dependence, unspecified, uncomplicated; Z72.89 Other problems related to lifestyle; Z98.890 Other specified postprocedural states; Z79.82 Long term (current) use of aspirin; Z79.899 Other long term (current) drug therapy; Y90.9 Presence of alcohol in blood, level not specified
CPT/HCPCS: 99281